=== PATIENT | female | born 1995 | race Caucasian/White ===

== ENCOUNTER 2018-11-29 09:11 | Emergency (ER) | payer OTHER ==
--- NOTE | 2018-11-29 09:39 | EDM.PDOC ---
ED HPI GENERAL MEDICAL PROBLEM - General Chief Complaint: General Stated Complaint: DIZZY, LIGHT HEADED Time Seen by Provider: 11/29/18 09:28 - History of Present Illness INITIAL COMMENTS - FREE TEXT/NARRATIVE: HISTORY AND PHYSICAL: History of present illness: Patient's a 23-year-old white female who presents with a concern of weakness dizziness intermittent visual disturbance described as tunnel vision off and on over last year she has been seen by primary care doctors had physical exam and routine lab work she has had no imaging and is in the process of coordinating appointment for further evaluation and specialty referral is indicated. Review of systems: As per history of present illness and below otherwise all systems reviewed and negative. Past medical history: As per history of present illness and as reviewed below otherwise noncontributory. Surgical history: As per history of present illness and as reviewed below otherwise noncontributory. Social history: No reported history of drug or alcohol abuse. Family history: As per history of present illness and as reviewed below otherwise noncontributory. Physical exam: HEENT: Atraumatic, normocephalic, pupils reactive, negative for conjunctival pallor or scleral icterus, mucous membranes moist, throat clear, neck supple, nontender, trachea midline. Lungs: Clear to auscultation, breath sounds equal bilaterally, chest nontender. Heart: S1S2, regular, negative for clicks, rubs, or JVD. Abdomen: Soft, nondistended, nontender. Negative for masses or hepatosplenomegaly. Negative for costovertebral tenderness. Pelvis: Stable nontender. Genitourinary: Deferred. Rectal: Deferred. Extremities: Atraumatic, negative for cords or calf pain. Neurovascular unremarkable. Neuro: Awake, alert, oriented. Cranial nerves II through XII unremarkable. Cerebellum unremarkable. Motor and sensory unremarkable throughout. Exam nonfocal. Diagnostics: CBC CMP UA hCG CT brain EKG chest x-ray Therapeutics: None Impression: #1 intermittent dizziness etiology be determined #2 medical screening exam Definitive disposition and diagnosis as appropriate pending reevaluation and review of above. - Related Data Allergies Allergy/AdvReac Type Severity Reaction Status Date / Time pepper (genus Capsicum) Allergy Itching Verified 11/29/18 09:17 pineapple Allergy Itching Verified 11/29/18 09:17 Home Meds: Home Meds Control 11/29/18 [History] Past Medical History - Past Health History Medical/Surgical History: Denies Medical/Surgical History - Past Surgical History HEENT Surgical History: Reports: Oral Surgery Social & Family History - Family History Family Medical History: Noncontributory - Tobacco Use Smoking Status *Q: Never Smoker - Recreational Drug Use Recreational Drug Use: No ED ROS GENERAL - Review of Systems Review Of Systems: ROS reveals no pertinent complaints other than HPI. ED EXAM, GENERAL - Physical Exam Exam: See Below (See dictation) Course - Vital Signs Last Recorded V/S: Last Vital Signs Temp 36.0 C 11/29/18 09:17 Pulse 72 11/29/18 09:17 Resp 18 11/29/18 09:17 BP 143/88 H 11/29/18 09:17 Pulse Ox 98 11/29/18 09:17 - Orders/Labs/Meds Orders: Active Orders 24 hr Category Date Time Status EKG Documentation Completion [RC] STAT Care 11/29/18 09:29 Active Pulse Oximetry [RC] ASDIRECTED Care 11/29/18 09:31 Active Chest 1V Frontal [CR] Stat Exams 11/29/18 09:31 Ordered Head wo Cont [CT] Stat Exams 11/29/18 09:31 Ordered CBC WITH AUTO DIFF [HEME] Stat Lab 11/29/18 09:29 Ordered COMPREHENSIVE METABOLIC PN,CMP [CHEM] Stat Lab 11/29/18 09:29 Ordered HCG QUALITATIVE,SERUM [CHEM] Stat Lab 11/29/18 09:29 Ordered UA RFX DEREK AND CULT IF INDIC [URIN] Stat Lab 11/29/18 09:30 Ordered Departure - Departure Time of Disposition: 09:37 Disposition: Home, Self-Care 01 Condition: Good Clinical Impression: Encounter for medical screening examination, Dizziness - Discharge Information Referrals: PCP,Unknown [Primary Care Provider] - Additional Instructions: The following information is given to patients seen in the emergency department who are being discharged to home. This information is to outline your options for follow-up care. We provide all patients seen in our emergency department with a follow-up referral. The need for follow-up, as well as the timing and circumstances, are variable depending upon the specifics of your emergency department visit. If you don't have a primary care physician on staff, we will provide you with a referral. We always advise you to contact your personal physician following an emergency department visit to inform them of the circumstance of the visit and for follow-up with them and/or the need for any referrals to a consulting specialist. The emergency department will also refer you to a specialist when appropriate. This referral assures that you have the opportunity for followup care with a specialist. All of these measure are taken in an effort to provide you with optimal care, which includes your followup. Under all circumstances we always encourage you to contact your private physician who remains a resource for coordinating your care. When calling for followup care, please make the office aware that this follow-up is from your recent emergency room visit. If for any reason you are refused follow-up, please contact the [facility] emergency department at and asked to speak to the emergency department charge nurse. Meclizine as prescribed follow-up primary care as discussed return as needed as discussed - My Orders Last 24 Hours: My Active Orders 11/29/18 09:29 EKG Documentation Completion [RC] STAT CBC WITH AUTO DIFF [HEME] Stat COMPREHENSIVE METABOLIC PN,CMP [CHEM] Stat HCG QUALITATIVE,SERUM [CHEM] Stat 11/29/18 09:30 UA RFX DEREK AND CULT IF INDIC [URIN] Stat 11/29/18 09:31 Pulse Oximetry [RC] ASDIRECTED Chest 1V Frontal [CR] Stat Head wo Cont [CT] Stat - Assessment/Plan Last 24 Hours: My Active Orders 11/29/18 09:29 EKG Documentation Completion [RC] STAT CBC WITH AUTO DIFF [HEME] Stat COMPREHENSIVE METABOLIC PN,CMP [CHEM] Stat HCG QUALITATIVE,SERUM [CHEM] Stat 11/29/18 09:30 UA RFX DEREK AND CULT IF INDIC [URIN] Stat 11/29/18 09:31 Pulse Oximetry [RC] ASDIRECTED Chest 1V Frontal [CR] Stat Head wo Cont [CT] Stat
[2018-11-29 10:23] LABS: CHLORIDE,CL 106 mmol/L (98-107); SODIUM,NA 140 mmol/L (136-145)
--- NOTE | 2018-11-29 10:27 | CR ---
INDICATION: Chest pain, shortness of breath, dizziness and nausea. TECHNIQUE: AP portable chest. FINDINGS: The lungs are clear without pneumothorax. Normal heart size and pulmonary vascular pattern with no pleural effusions. Intact osseous thorax. IMPRESSION: No acute radiographic chest finding. Dictated by Pankaj Reyna MD @ Nov 29 2018 10:25AM Signed by Dr. Pankaj Reyna @ Nov 29 2018 10:26AM
--- NOTE | 2018-11-29 11:27 | CT ---
INDICATION: lightheaded Technique: Non-contrast head CT scan. Findings: No abnormal foci of altered attenuation in the brain parenchyma. No midline shift or mass effect. No hydrocephalus. No abnormal extra-axial fluid collections. No abnormalities identified in the visualized portions of the skull and scalp. Mucus membrane thickening and an air-fluid level in the left maxillary sinus. Impression: No evidence of acute intracranial abnormalities. Left maxillary sinusitis. Dictated by: Wallace Silverman MD @ 11/29/2018 11:25:55 (Electronically Signed)
== END 2018-11-29 11:40 | disposition home or self-care (01) ==
LOC: MW.ED 09:11
DX: R42 Dizziness and giddiness (principal); Z91.018 Allergy to other foods; Z79.3 Long term (current) use of hormonal contraceptives
CPT/HCPCS: 36415; 70450; 70450-26; 71045; 71045-26; 80053; 84703; 85025; 93005; 99283; 99284-25

== ENCOUNTER 2018-12-14 05:02 | Emergency (ER) | payer OTHER ==
[2018-12-14] MEDS ORDERED: Ketorolac 30 MG/ML SDV IVPUSH ONE (05:16)
[2018-12-14] MEDS ORDERED: Sodium Chloride 0.9% 1,000 ML IV ONE (05:16)
[2018-12-14] MEDS ORDERED: cefTRIAXone 1 GM in Premix Bag 1 BAG IV ONE (05:16)
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
== END 2018-12-14 06:25 | disposition home or self-care (01) ==
LOC: MW.ED 05:02
DX: J32.9 Chronic sinusitis, unspecified (principal); Z91.018 Allergy to other foods
CPT/HCPCS: 96365; 96375; 99283; J0696; J1885; J7040

== ENCOUNTER 2019-06-17 13:02 | Emergency (ER) | payer OTHER ==
[2019-06-17 15:42] LABS: BLOOD UREA NITROGEN,BUN 17 mg/dL (7.0-18.0); CARBON DIOXIDE,CO2 25.5 mmol/L (21.0-32.0); CHLORIDE,CL 103 mmol/L (98-107); GLUCOSE RANDOM 87 mg/dL (74-106); LIPASE 129 U/L (73-393); POTASSIUM,K 4.3 mmol/L (3.5-5.1); SODIUM,NA 139 mmol/L (136-145)
--- NOTE | 2019-06-17 16:09 | CR ---
Chest: 2 views of the chest were obtained. Comparison: Prior chest x-ray of 11/29/18. Heart size and mediastinum are normal. Lungs are clear with no acute parenchymal change. Mild scoliosis is noted within the spine. Impression: 1. Mild scoliosis. 2. Nothing acute is appreciated on 2 view chest x-ray. Diagnostic code #2 Study was dictated in [place] Standard Time
--- NOTE | 2019-06-17 16:37 | EDM.PDOC ---
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 [address] [place] [id number] and are open Wednesday through Wednesday from 7: 30 am to 5:00 pm. Obstetrical and Gynecological Care: [facility], , Wednesday through Wednesday 8 AM to 5 PM. [address], [place] [address]. Eyecare: If you have an eye injury you should follow up with your airplane charter clerk or with [facility], at [phone] or [phone] , they are located at [address] [place] [address]. Dental Care Osvaldo Roca DDS. [address] [place], [place]. Ph. [phone] Catalino Roca DDS MS. [address] [facility] 104, [place], [place]. Ph. [phone] Abelino Oleary DDS. 10 04/[address] [place] [address]. Ph. [phone] Sebastian Esquivel DDS. [address] [facility] 4 [place], [place]. Ph. [phone] Jose Scott DDS PC. [address] [facility] 101 [place], [place]. Ph. [phone] Jammie Corbett DDS. [address] [place] [address]. Ph. [phone] [facility]. [address] [place], [place]. Ph. [phone] Rust. [address] [place] [address], [place], [place]. Ph. [phone] [facility] [address] [place] [address]. Ph. [phone] [facility]. [address] [place] [address] [address] [place]. Ph. [facility]. [address] [place], [place]. Ph. Sepsis Event Note - Evaluation Sepsis Screening Result: No Definite Risk - Focused Exam Vital Signs: Vital Signs Temp Pulse Resp BP Pulse Ox 06/17/19 16:26 90 134/81 98 06/17/19 13:31 36.2 C 95 15 137/79 96 Date Exam was Performed: 06/17/19 Time Exam was Performed: 16:37
== END 2019-06-17 16:47 | disposition home or self-care (01) ==
LOC: MW.ED 13:02
DX: R10.12 Left upper quadrant pain (principal); J04.0 Acute laryngitis; Z91.018 Allergy to other foods
CPT/HCPCS: 36415; 71046; 71046-26; 80053; 81003; 83690; 84703; 85025; 85379; 99283; 99284-25

== ENCOUNTER 2020-01-18 07:31 | Emergency (ER) | payer OTHER ==
[2020-01-18] MEDS ORDERED: Sodium Chloride 0.9% 1,000 ML IV ONE (08:07)
[2020-01-18] MEDS ORDERED: Ketorolac 30 MG/ML SDV IVPUSH ONE (08:07)
[2020-01-18] MEDS ORDERED: Ondansetron 4 MG/2 ML SDV IVPUSH ONE (08:07)
[2020-01-18] MEDS ORDERED: Sodium Chloride 0.9% 10 ML Syringe FLUSH PRN (08:07)
[2020-01-18] MEDS ORDERED: Sodium Chloride 0.9% 2.5 ML Syringe FLUSH PRN ×2 (08:07)
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
[2020-01-18 09:05] LABS: BLOOD UREA NITROGEN,BUN 13 mg/dL (7.0-18.0); CARBON DIOXIDE,CO2 26.9 mmol/L (21.0-32.0); CHLORIDE,CL 104 mmol/L (98-107); GLUCOSE RANDOM 95 mg/dL (74-106); LIPASE 94 U/L (73-393); POTASSIUM,K 4.1 mmol/L (3.5-5.1); SODIUM,NA 138 mmol/L (136-145)
[2020-01-22 17:07] LABS: C.TRACHOMATIS BY TMA Negative (Negative); N.GONORRHOEAE BY TMA Negative (Negative)
== END 2020-01-18 11:59 | disposition home or self-care (01) ==
LOC: MW.ED 07:31
DX: R10.32 Left lower quadrant pain (principal); R11.0 Nausea; Z91.018 Allergy to other foods
CPT/HCPCS: 36415; 80053; 81003; 81025; 83690; 85025; 87480; 87491; 87510; 87591; 87660; 96374; 96375; 99284; J1885; J2405; J7030; 99283

== ENCOUNTER 2020-02-11 11:56 | Emergency (ER) | payer OTHER ==
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
== END 2020-02-11 13:15 | disposition home or self-care (01) ==
LOC: MW.ED 11:56
DX: B34.9 Viral infection, unspecified (principal); Z20.828 Contact with and (suspected) exposure to other viral communicable diseases; Z91.018 Allergy to other foods
CPT/HCPCS: 99282; 99283; U0002

== ENCOUNTER 2022-04-23 09:36 | Emergency (ER) | payer OTHER ==
[2022-04-23] MEDS ORDERED: Acetaminophen 500 MG Tab PO ONE (09:48)
== END 2022-04-23 10:56 | disposition home or self-care (01) ==
LOC: MW.ED 09:36
DX: S60.222A Contusion of left hand, initial encounter (principal); Z91.018 Allergy to other foods; Z91.048 Other nonmedicinal substance allergy status; X50.0XXA Overexertion from strenuous movement or load, initial encounter; Y99.0 Civilian activity done for income or pay
CPT/HCPCS: 73110; 73130; 99283; A9270

== ENCOUNTER 2024-02-18 17:04 | Emergency (ER) | payer BC, OTHER ==
[2024-02-18 17:54] LABS: BASOPHILS ABSOLUTE AUTO 0.01 K/uL (0.00-0.20); BASOPHILS PERCENT AUTO 0.1 % (0.0-1.0); EOSINOPHILS ABSOLUTE AUTO 0.04 K/uL (0.00-0.45); EOSINOPHILS PERCENT AUTO 0.5 % (0.0-6.0); HEMATOCRIT 42.1 % (37.0-47.0); HEMOGLOBIN 14.5 g/dL (12.0-16.0); IMMATURE GRAN ABSOLUTE AUTO 0.02 K/uL (0.00-0.05); IMMATURE GRAN PERCENT AUTO 0.3 % (0.0-0.4); LYMPHOCYTES ABSOLUTE AUTO 1.66 K/uL (1.00-4.80); LYMPHOCYTES PERCENT AUTO 21.5 % (24.0-44.0); MEAN CORPUSCULAR HEMOGLOBIN 31.5 pg (28.0-32.0); MEAN CORPUSCULAR HGB CONC 34.4 g/dL (32.0-36.0); MEAN CORPUSCULAR VOLUME 91.3 fL (83.0-99.0); MEAN PLATELET VOLUME 9.7 fL (9.4-12.3); MONOCYTES ABSOLUTE AUTO 0.66 K/uL (0.00-0.80); MONOCYTES PERCENT AUTO 8.6 % (0.0-8.0); NEUTROPHILS ABSOLUTE AUTO 5.32 K/uL (1.80-7.70); PLATELET COUNT,PLT 365 K/uL (150-400); RED BLOOD CELL COUNT 4.61 M/uL (4.10-5.30); WHITE BLOOD CELL COUNT,WBC 7.71 K/uL (3.9-11.3)
[2024-02-18 18:33] LABS: A/G RATIO 1.1 (0.9-1.6); ALANINE AMINOTRANSFERASE,ALT 19 IU/L (14-63); ALBUMIN 4.1 g/dL (3.4-5.0); ALKALINE PHOSPHATASE 91 U/L (46-116); ASPARTATE AMNIOTRANSFERASE,AST 20 IU/L (15-37); BILIRUBIN TOTAL 0.7 mg/dL (0.2-1.0); BLOOD UREA NITROGEN,BUN 14 mg/dL (7.0-18.0); CALCIUM 9.9 mg/dL (8.5-10.1); CARBON DIOXIDE,CO2 26.3 mmol/L (21.0-32.0); CHLORIDE,CL 101 mmol/L (98-107); CREATININE 0.9 mg/dL (0.6-1.0); EST CRCL DRUG DOSING (CG) 74.26 mL/min; GLUCOSE RANDOM 97 mg/dL (74-106); MAGNESIUM 1.7 mg/dL (1.8-2.4); PROTEIN TOTAL,TP 7.7 g/dL (6.4-8.2); SODIUM,NA 138 mmol/L (136-145)
[2024-02-18 18:36] LABS: ESTIMATED GFR 90 mL/min (>60)
== END 2024-02-18 19:36 | disposition home or self-care (01) ==
LOC: MW.ED 17:04
DX: R07.9 Chest pain, unspecified (principal); R00.2 Palpitations; Z91.018 Allergy to other foods; Z79.899 Other long term (current) drug therapy; Z75.8 Other problems related to medical facilities and other health care
CPT/HCPCS: 36415; 71046; 71046-26; 80053; 83735; 84484; 84703; 85025; 93005; 99285